=== PATIENT | female | born 2005 ===

== ENCOUNTER 2024-06-29 07:55 | Inpatient (IN) | payer BC ==
[2024-06-29] MEDS ORDERED: Ondansetron 4 MG/2 ML SDV IVPUSH PRN (08:34)
[2024-06-29] MEDS ORDERED: Calcium Carbonate 500 MG Tab.Chew PO PRN (08:34)
[2024-06-29] MEDS ORDERED: Acetaminophen 325 MG Tab PO PRN (08:34)
[2024-06-29] MEDS ORDERED: Oxytocin/0.9 % Sodium Chloride 30 UNIT/500 ML BAG IV SCH (08:45)
[2024-06-29 09:09] LABS: BASOPHILS PERCENT AUTO 0.3 % (0.0-1.0); EOSINOPHILS PERCENT AUTO 0.2 % (0.0-6.0); HEMATOCRIT 40.3 % (37.0-47.0); HEMOGLOBIN 13.5 gm/dl (12.0-16.0); IMMATURE GRAN ABSOLUTE AUTO 0.05 K/mm3 (0.00-0.05); IMMATURE GRAN PERCENT AUTO 0.4 % (0.0-0.4); LYMPHOCYTES ABSOLUTE AUTO 1.3 K/mm3 (1.0-4.8); LYMPHOCYTES PERCENT AUTO 11.2 % (24.0-44.0); MEAN CORPUSCULAR HGB CONC 33.5 g/dl (32.0-36.0); MEAN CORPUSCULAR VOLUME 89.6 fl (83.0-99.0); MEAN PLATELET VOLUME 11.7 fl (9.4-12.3); MONOCYTES ABSOLUTE AUTO 0.9 K/mm3 (0.0-0.8); MONOCYTES PERCENT AUTO 7.7 % (0.0-8.0); NEUTROPHILS PERCENT AUTO 80.2 % (41.0-71.0); PLATELET COUNT,PLT 170 K/mm3 (150-400); WHITE BLOOD CELL COUNT,WBC 11.22 K/mm3 (3.9-11.3)
[2024-06-29] MEDS: Ampicillin 2 GM in Sodium Chloride 0.9% 100 ML IV ONE (09:09)
[2024-06-29] MEDS: Lactated Ringers 1,000 ML IV SCH (09:09)
[2024-06-29 09:42] LABS: CREATININE,URINE RAND 85.5 mg/dL (30.0-125.0); PROTEIN CREATININE RATIO,URINE 1090.1 mg/g (0-149); PROTEIN,URINE RANDOM 93.2 mg/dL (0.0-11.8)
[2024-06-29 09:45] LABS: CREATININE 0.9 mg/dL (0.55-1.02); EST CRCL DRUG DOSING (CG) 96.15 mL/min; URIC ACID 6.2 mg/dL (2.6-6.0)
[2024-06-29] MEDS: Ampicillin 1 GM in Sodium Chloride 0.9% 100 ML IV SCH (12:46)
[2024-06-29] MEDS: Nalbuphine 10 MG/1 ML Vial IVPUSH PRN (14:39)
[2024-06-29] MEDS: Oxytocin/0.9 % Sodium Chloride 30 UNIT/500 ML BAG IV SCH ×2 (17:44→22:00)
[2024-06-29] MEDS: Lidocaine 1% 50 ML MDV INJECT PRN (18:40)
[2024-06-29] MEDS: Ibuprofen 600 MG Tab PO SCH (20:44)
[2024-06-29] MEDS: Docusate Sodium 100 MG Cap PO PRN (20:45)
[2024-06-29] MEDS: Acetaminophen 325 MG Tab PO PRN (20:45)
[2024-06-29] MEDS: Misoprostol 200 MCG Tab BUCCAL STA (20:53)
[2024-06-29] MEDS: Benzocaine/Menthol 20%-0.5% Spray 78 GM Cannister TOP PRN (20:54)
[2024-06-29] MEDS: Witch Hazel Medicated Pads 40/Jar TOP PRN (20:55)
[2024-06-29] MEDS ORDERED: Naloxone 0.4 MG/ML SDV IVPUSH PRN (21:33)
[2024-06-29] MEDS: Carboprost Tromethamine 250 MCG/1 mL Vial IM ONE (21:50)
[2024-06-29] MEDS: fentaNYL 100 MCG/2 ML SDV IVPUSH PRN (22:05)
[2024-06-29] MEDS: Methylergonovine 0.2 MG/1 ML Amp IM STA (22:16)
[2024-06-29] MEDS: Tranexamic Acid 1,000 MG/10 ML Vial IVPUSH ONE (22:23)
[2024-06-29 22:26] LABS: HEMATOCRIT 28.8 % (37.0-47.0); HEMOGLOBIN 9.6 gm/dl (12.0-16.0); MEAN CORPUSCULAR HEMOGLOBIN 30.1 pg (28.0-32.0); MEAN CORPUSCULAR HGB CONC 33.3 g/dl (32.0-36.0); MEAN CORPUSCULAR VOLUME 90.3 fl (83.0-99.0); MEAN PLATELET VOLUME 11.6 fl (9.4-12.3); PLATELET COUNT,PLT 188 K/mm3 (150-400); RED BLOOD CELL COUNT 3.19 M/mm3 (4.10-5.30); WHITE BLOOD CELL COUNT,WBC 21.59 K/mm3 (3.9-11.3)
[2024-06-29] MEDS ORDERED: Sodium Chloride 0.9% 1,000 ML IV SCH (22:45)
[2024-06-29] MEDS ORDERED: Propofol 200 MG/20 ML SDV ONE ×2 (23:17)
[2024-06-29] MEDS ORDERED: fentaNYL 250 MCG/5 ML SDV ONE (23:17)
[2024-06-29] MEDS ORDERED: Lidocaine 1% 20 ML MDV ONE (23:22)
[2024-06-29 23:24] LABS: PROTHROMBIN TIME 10.6 SECONDS (9.7-12.0)
[2024-06-29 23:26] LABS: PTT,PARTIAL THROMBOPLSTIN TIME 27.9 SECONDS (21.7-31.4)
[2024-06-29] MEDS ORDERED: ceFAZolin 2 GM Vial ONE (23:40)
[2024-06-29] MEDS ORDERED: Methylergonovine 0.2 MG/1 ML Amp ONE (23:54)
[2024-06-30] MEDS ORDERED: Carboprost Tromethamine 250 MCG/1 mL Vial ONE (00:03)
[2024-06-30] MEDS ORDERED: Rocuronium 50 MG/5 ML Vial ONE (00:05)
[2024-06-30] MEDS ORDERED: Sugammadex Sodium 200 MG/2 ML VIAL IV ONE (00:18)
[2024-06-30] MEDS ORDERED: Dexamethasone 4 MG/ML 5 ML MDV ONE (00:18)
[2024-06-30] MEDS ORDERED: Ondansetron 4 MG/2 ML SDV ONE (00:18)
[2024-06-30] MEDS ORDERED: Phenylephrine 1% 10 MG/ML SDV ONE (00:51)
[2024-06-30] MEDS: Loperamide 2 MG Cap PO PRN (01:38)
[2024-06-30] MEDS: Ketorolac 30 MG/ML SDV IVPUSH SCH (03:14)
[2024-06-30] MEDS: Methylergonovine 0.2 MG/1 ML Amp IM SCH (03:58)
[2024-06-30] MEDS: ceFAZolin 2 GM Vial IVPUSH ONE (07:32)
[2024-06-30] MEDS: Carboprost Tromethamine 250 MCG/1 mL Vial IM ONE (07:32)
[2024-06-30] MEDS: ceFAZolin 2 GM in Sodium Chloride 0.9% 50 ML IV ONE (07:33)
[2024-06-30 09:01] LABS: HEMATOCRIT 26.2 % (37.0-47.0); HEMOGLOBIN 9.1 gm/dl (12.0-16.0); MEAN CORPUSCULAR HEMOGLOBIN 30.1 pg (28.0-32.0); MEAN CORPUSCULAR HGB CONC 34.7 g/dl (32.0-36.0); MEAN PLATELET VOLUME 11.3 fl (9.4-12.3); PLATELET COUNT,PLT 118 K/mm3 (150-400); RED BLOOD CELL COUNT 3.02 M/mm3 (4.10-5.30); WHITE BLOOD CELL COUNT,WBC 15.95 K/mm3 (3.9-11.3)
[2024-06-30 09:08] LABS: MEAN CORPUSCULAR VOLUME 86.8 fl (83.0-99.0)
[2024-07-01] MEDS: Ibuprofen 600 MG Tab PO PRN (03:31)
[2024-07-01 06:12] LABS: HEMATOCRIT 24.2 % (37.0-47.0); HEMOGLOBIN 8.3 gm/dl (12.0-16.0); MEAN CORPUSCULAR HEMOGLOBIN 30.2 pg (28.0-32.0); MEAN CORPUSCULAR HGB CONC 34.3 g/dl (32.0-36.0); MEAN PLATELET VOLUME 10.4 fl (9.4-12.3); PLATELET COUNT,PLT 152 K/mm3 (150-400); RED BLOOD CELL COUNT 2.75 M/mm3 (4.10-5.30); WHITE BLOOD CELL COUNT,WBC 14.49 K/mm3 (3.9-11.3)
[2024-07-02 15:41] LABS: TP-PA Non Reactive (Non Reactive)
[2024-07-02 15:57] LABS: TP-PA SEE SEPARATE REPORT
== END 2024-07-01 12:50 | disposition home or self-care (01) | DRG 560 ==
LOC: JD.OBCHECK 07:55 → JD.OB 07:57 → JD.OBCHECK 08:33 → JD.OB 08:34 → OBSVTOIN 18:25 → JD.OB 18:26
PROVIDERS: ADMIT Obstetrics & Gynecology; ATTEND Obstetrics & Gynecology
PROC: 0KQM0ZZ Repair Perineum Muscle, Open Approach (ICD-10-PCS; principal; 2024-06-29 23:30)
PROC: 10D07Z6 Extraction of Products of Conception, Vacuum, Via Natural or Artificial Opening (ICD-10-PCS; principal; 2024-06-29 23:30)
PROC: 10907ZC Drainage of Amniotic Fluid, Therapeutic from Products of Conception, Via Natural or Artificial Opening (ICD-10-PCS; principal; 2024-06-29 23:30)
PROC: 30233N1 Transfusion of Nonautologous Red Blood Cells into Peripheral Vein, Percutaneous Approach (ICD-10-PCS; principal; 2024-06-29 23:30)
DX: O14.94 Unspecified pre-eclampsia, complicating childbirth (principal); O99.820 Streptococcus B carrier state complicating pregnancy; D62 Acute posthemorrhagic anemia; O99.03 Anemia complicating the puerperium; H54.7 Unspecified visual loss; O70.1 Second degree perineal laceration during delivery; O72.1 Other immediate postpartum hemorrhage; Z90.49 Acquired absence of other specified parts of digestive tract; Z37.0 Single live birth; Z3A.39 39 weeks gestation of pregnancy
CPT/HCPCS: 01965; 36415; 36430; 51701; 59025; 59409; 82565; 82570; 83615; 84156; 84450; 84460; 84520; 84550; 85025; 85027; 85384; 85610; 85730; 86592; 86780; 86850; 86900; 86901; 86922; 99140; A9270-GY; C1758; J0290; J0690; J1100; J1885; J2210; J2300; J2371; J2405; J2704; J3010; J3490; J7120; J7999; P9016